=== PATIENT | male | born 1990 | race Two or more races ===

== ENCOUNTER 2017-01-01 08:58 | Emergency (ER) | payer MEDICAID ==
[~2017-01-01] VITALS: Ht 180.3 cm; Wt 72.5 kg
[2017-01-01 08:59] VITALS: BP 112/73
[2017-01-01] MEDS ORDERED: IBUPROFEN 200 MG TABLET PO ONE (09:30)
== END 2017-01-01 10:15 | disposition home or self-care (01) ==
LOC: ED 09:19
DX: S93.401A Sprain of unspecified ligament of right ankle, initial encounter (principal); X58.XXXA Exposure to other specified factors, initial encounter; Y93.89 Activity, other specified; Y92.89 Other specified places as the place of occurrence of the external cause; Y99.8 Other external cause status
CPT/HCPCS: 99284